=== PATIENT | male | born 2000 | race Caucasian/White ===

== ENCOUNTER 2023-10-05 11:53 | Emergency (ER) | payer BC, SELFPAY ==
[2023-10-05 11:56] VITALS: BP 130/77
[2023-10-05 12:24] LABS: % Basophils 0.4 % (0-2); % Immature Granulocytes 0.3 % (0-0.5); % Monocytes 5.4 % (1.7-9.3); % Neutrophils 76.9 % (42.2-75.2); Absolute Eosinophils 0.1 10^3/uL (0-0.7); Absolute Lymphocytes 1.7 10^3/uL (1.2-3.4); Absolute Monocytes 0.6 10^3/uL (0.1-0.6); Absolute Neutrophils 8.3 10^3/uL (1.4-6.5); Hematocrit 39.4 % (39.0-52.0); Hemoglobin 13.7 g/dL (13.0-18.0); Mean Corp Hgb Conc. 34.8 g/dL (33.0-37.0); Mean Corpuscular Hgb 28.5 pg (27.0-31.0); Mean Corpuscular Volume 81.9 fL (80.0-94.0); Mean Platelet Volume 9.5 fL (7.4-10.4); Nucleated Red Blood Cells % 0 % (-); Platelet Count 422 10^3/uL (130-400); Red Blood Cell Count 4.81 10^6/uL (4.70-6.10); Red Cell Dist. Width 13.6 % (11.5-14.5); White Blood Cell Count 10.8 10^3/uL (4.8-10.8)
[2023-10-05 12:44] LABS: Troponin I < 0.012 ng/ml
[2023-10-05 12:50] LABS: ALT (SGPT) 37 U/L (0-50); AST (SGOT) 28 U/L (17-59); Albumin 4.3 g/dl (3.5-5.0); Alkaline Phosphatase 57 U/L (38-126); Blood Urea Nitrogen 7 mg/dl (9-20); Calcium 9.7 mg/dl (8.4-10.2); Carbon Dioxide 24 mmol/L (22-30); Chloride 106 mmol/L (98-107); Glucose 127 mg/dl (70-99); Lipase 44 U/L (23-300); Potassium 3.8 mmol/L (3.5-5.1); Sodium 136 mmol/L (135-145); Total Bilirubin 0.7 mg/dl (0.2-1.3); Total Protein 7.4 g/dl (6.3-8.2); eGFR > 60.00
[2023-10-05 12:57] LABS: HCG, Serum Qualitative Screen Negative
[2023-10-05 13:15] LABS: TSH 1.47 uIU/ml (0.47-4.68)
[2023-10-05 14:19] VITALS: BP 134/89
--- NOTE | 2023-10-05 14:59 | ED.GENMED ---
History of Present Illness
General
Chief Complaint: Chest Pain
Source: patient
Exam Limitations: none
Time Seen by Provider: 10/05/23 14:16
Nursing documentation reviewed up to this point in time: agreed with
Travel History
Have you had any contact with someone who has COVID-19?: No
Do you have any symptoms of coronavirus? Fever > 100 degrees, chills, cough, shortness of breath, sore throat, loss of taste or smell, muscle aches, or headache?: No
History of Present Illness
History of Present Illness:
Patient presents to ED secondary to intermittent chest palpitations and difficulty sleeping at night for the past 1 month. Patient has history of PTSD and is currently receiving therapy. In fact, patient has an appointment next week with his
psychiatrist. Patient states that he has been utilizing marijuana and is noted that his panic attack seems to be worse, especially when mixed with his prescribed medication. Denies suicidal homicidal ideation. Denies fever or chills. Denies
shortness of breath. Denies nausea, vomiting, or diarrhea. Patient also is interested in finding about the type of diet he should be on, especially in light of his palpitations.
Review of Systems
Review of Systems
Allergies reviewed?: Yes
All Other Systems: ROS reviewed and negative except as documented in HPI and ROS
Constitutional: Reports no symptoms
EENT: Reports no symptoms
Respiratory: Reports no symptoms
Cardiac: Reports palpitations
ABD/GI: Reports no symptoms
: Reports no symptoms
Musculoskeletal: Reports no symptoms
Skin: Reports no symptoms
Neurological: Reports no symptoms
Phy Exam
Physical Exam
Physical Exam:
Physical Exam
General: no apparent distress, not acutely ill. afebrile
Head: nc/at. eomi
Neck: supple. no meningeal signs.
Heart: s1/s2 regular rate and rhythm, no murmur. equal radial pulses.
Lungs: no acute respiratory distress. clear bilaterally
Abdomen: normal bowel sounds. not tender.
Neuro: alert and oriented. no focal neurological deficits
Skin: no rash
Psychiatric: well kept. interactive and cooperative
Extremities: no edema. no calf tenderness.
Scores
Heart Score for Chest Pain Patients
STEMI patient?: Not applicable
Course
Orders/Labs/Results
Orders:
Orders
10/05/23 12:04
Electrocardiogram (*1) Urgent
Reason for Study: Chest Pain
10/05/23 12:06
EKG- Treatment ONCE
10/05/23 12:13
Complete Blood Count/With Diff Urgent
Comprehensive Metabolic Panel Urgent
HCG, Serum Qualitative Screen Urgent
Lipase Urgent
TSH Urgent
Troponin I Urgent
10/05/23 14:16
CR Chest - 2 Views Urgent
Comment:
Reason For Exam: chest pain
Abnormal Lab Results
10/05/23
12:13
Plt Count 422 H 10^3/uL
(130-400)
Absolute Neuts (auto) 8.3 H 10^3/uL
(1.4-6.5)
Neutrophils % 76.9 H %
(42.2-75.2)
Lymphocytes % 16.0 L %
(20.5-51.1)
BUN 7 L mg/dl
(9-20)
Glucose 127 H mg/dl
(70-99)
10/05/23 12:13
10/05/23 12:13
Vital Signs
Initial and Last Documented VS:
Initial Vital Signs
Temp Pulse Resp BP Pulse Ox
98.4 F 97 18 130/77 98
10/05/23 11:56 10/05/23 11:56 10/05/23 11:56 10/05/23 11:56 10/05/23 11:56
Last Documented Vital Signs
Temp Pulse Resp BP Pulse Ox
98.4 F 77 16 131/85 99
10/05/23 11:56 10/05/23 15:50 10/05/23 15:50 10/05/23 15:50 10/05/23 15:50
MDM/Problems Addressed
MDM/Problems Addressed:
History and exam inconsistent with acute coronary syndrome but likely multifactorial including recreational drug use as well as continued stressors at home. Patient with an unremarkable workup in ED, including blood work and EKG. Patient will be
discharged in stable condition, with recommendation to continue to follow-up with her psychiatrist as scheduled for further evaluation and treatment.
*EKG
Interpreted by ED Provider?: Yes
EKG Intrepretation Date: 10/05/23
Heart Rate: 103
Rate: tachycardiac
Rhythm: sinus
Scurry: normal axis
Interval: normal interval
*Critical Care Note
Total Time (30-74mins, 75-104mins- exclusive of procedures): Not Applicable
ED Attending Note
-
Portions of this chart may have been created with voice recognition software.� Occasional wrong word or��sound alike� substitutions may have occurred due to the inherent limitations of voice recognition software.
Discharge Plan
Departure
Patient Disposition: Home (Routine Discharge)
Date of Disposition: 10/05/23
Time of Disposition: 15:38
Patient with high blood pressure during this ER visit?: Yes
Condition: Good
Discharge Problem:
Heart palpitations, Anxiety
Instructions: Heart Healthy Diet, Anxiety, Adult (DC), Heart Palpitations
Referrals:
Rock Rolon CRNP [Family Provider] -
Activity Restrictions/Additional Instructions:
As discussed, please follow-up with your primary care physician and psychiatrist for continual evaluation and treatment.
Interventions
Interventions:
*Risk Screen - Suicide Last Done: 10/05/23 14:19
*General Assessment Last Done: 10/05/23 11:56
*Neglect/Abuse Screening Last Done: 10/05/23 14:19
ED- Fall Risk Assessment Last Done: 10/05/23 15:51
*ED COVID-19 Vaccine History Last Done: 10/05/23 14:19
*Nursing Disposition Last Done: 10/05/23 15:51
ED- Cardiac Assessment Last Done: 10/05/23 14:21
Discharge Date and Time
Discharge Date/Time: 10/05/23 16:00
[2023-10-05 15:50] VITALS: BP 131/85
== END 2023-10-05 16:00 | disposition home or self-care (01) ==
LOC: EMR 11:53
PROVIDERS: Emergency Medicine; EMERGENCY PHYSICIAN Emergency Medicine; FAMILY PHYSICIAN Registered Nurse
DX: R00.2 Palpitations (principal); F41.9 Anxiety disorder, unspecified; R03.0 Elevated blood-pressure reading, without diagnosis of hypertension
CPT/HCPCS: 99285; 71046; 80053; 83690; 84443; 84484; 84703; 85025; 93005